=== PATIENT | female | born 1940 | race Caucasian/White ===

== ENCOUNTER → 2017-11-13 | Outpatient (CLI) | payer MEDICARE, OTHER ==
[~2017-11-13] VITALS: Ht 165.1 cm; Wt 61.4 kg
[~2017-11-13] MED LIST: ASPIRIN 81M81 MG/TA2 PO; CRANBERRY500 M3 PO; ELDEPRYL 5MG5 MG/CAP PO; HYZAAR 25 MG-101 TAB PO; NEURONTIN100 MG/CAP PO; OSCAL W/VIT D250 MG PO; PRIL40 PO; PROBIOTIC FORMU1 CAP PO; SYNTHROID0.175 MG PO; TYLENOL 500MG500 MG PO; VITAMIN B COMPL1 TA1 PO; VITAMINE200; [UNRECOGNIZED DRUG - OTHER]
[2017-11-13 15:02] VITALS: BP 104/64; PULSE 96
[2017-11-13 16:09] VITALS: BP 96/58; PULSE 95
[2017-11-13 16:31] LABS: PLEURAL FLUID RBC 39000 /mm3 (0-0); PLEURAL FLUID WBC 4885 /mm3
[2017-11-13 16:33] LABS: GLUCOSE,PLEURAL FLUID 73 mg/dL
[2017-11-13 16:36] LABS: PLEURAL FLUID APPEARANCE CLOUDY; PLEURAL FLUID COLOR RED
== END ==
LOC: COL.RAD 14:22
PROVIDERS: Family Medicine
DX: J90 Pleural effusion, not elsewhere classified (principal)
CPT/HCPCS: 19804

== ENCOUNTER → 2017-11-19 | Outpatient (CLI) | payer MEDICARE, OTHER ==
[~2017-11-19] VITALS: Ht 165.1 cm; Wt 62.0 kg
[2017-11-19] VITALS (9 sets, daily range): BP systolic 123–144; BP diastolic 64–101; PULSE 83–101
[~2017-11-19] MED LIST changes: +ACIDOPHILIS; +LASIX 20MG TABL20 MG PO; +SYNTHROID0.2 MG/TAB PO; +TYLENOL 8 HR PO
== END ==
LOC: COL.RAD 06:30
DX: R19.00 Intra-abdominal and pelvic swelling, mass and lump, unspecified site (principal)

== ENCOUNTER → 2017-11-25 | Outpatient (CLI) | payer MEDICARE, OTHER ==
[~2017-11-25] VITALS: Ht 165.1 cm; Wt 61.4 kg
[2017-11-25 14:22] VITALS: BP 117/68; PULSE 108
[2017-11-25 15:25] VITALS: BP 112/60; PULSE 100
== END ==
LOC: COL.RAD 13:26
DX: J90 Pleural effusion, not elsewhere classified (principal)

== ENCOUNTER → 2017-12-02 | Outpatient (CLI) | payer MEDICARE, OTHER ==
[2017-12-02] VITALS (8 sets, daily range): BP systolic 98–147; BP diastolic 63–79; PULSE 87–106
[~2017-12-02] VITALS: Ht 165.1 cm; Wt 62.5 kg
== END ==
LOC: COL.RAD 11:46
DX: J90 Pleural effusion, not elsewhere classified (principal); R19.00 Intra-abdominal and pelvic swelling, mass and lump, unspecified site; Z98.890 Other specified postprocedural states

== ENCOUNTER 2018-01-08 11:53 | Observation (INO) | payer MEDICARE, OTHER ==
[~2018-01-08] VITALS: Ht 165.1 cm; Wt 58.5 kg
[~2018-01-08 11:53] MED LIST changes: -ACIDOPHILIS; +ACIDOPHILIS PO; +FERROUS SULFATE PO; +NATURAL E400 IU PO; +PROLIA60 MG/ML SQ; +SYNTHROID0.1 MG/TAB PO; +THERATEARS 0.60.6 ML OP
[2018-01-08 12:34] LABS: MEAN CELL VOLUME 93 fl (80.0-100.0); MEAN CORPUSCULAR HGB CONC 31 g/dl (33.0-37.0); MEAN PLATELET VOLUME 8.6 fl (7.4-10.4); PLATELET COUNT 392 K/mm3 (130-400); RED BLOOD COUNT 3.47 M/mm3 (4.10-5.30); REDCELL DISTRIBUTION WIDTH-CV 17.7 % (11.5-14.5)
[2018-01-08 12:38] LABS: HEMATOCRIT 32.2 % (37.0-47.0); HEMOGLOBIN 9.9 g/dl (12.5-16.0); MEAN CORPUSCULAR HEMOGLOBIN 29 pg (27.0-31.0)
[2018-01-08 12:50] LABS: ALANINE AMINOTRANSFERASE 30 U/L (9-52); ALBUMIN 2.8 gm/dL (3.5-5.0); ALKALINE PHOSPHATASE 78 U/L (50-136); ANION GAP 6 mmol/L (7-16); AST,SGOT 21 U/L (15-37); BILIRUBIN,TOTAL 0.2 mg/dL (0.0-1.0); BLOOD UREA NITROGEN 17 mg/dL (7-17); C-REACTIVE PROTEIN 5.8 mg/dL (0.0-0.9); CALCIUM 8.2 mg/dL (8.4-10.2); CARBON DIOXIDE 28 mmol/L (22-30); CHLORIDE 99 mmol/L (98-107); CREATININE, serum 0.51 mg/dL (0.52-1.25); GLUCOSE 93 mg/dL (74-106); POTASSIUM 4.3 mmol/L (3.4-5.0); SODIUM 133 mmol/L (137-145); TOTAL PROTEIN 6.2 gm/dL (6.4-8.2)
[2018-01-08 13:00] LABS: TROPONIN-I < 0.012 ng/mL (0.000-0.034)
[2018-01-08 13:03] LABS: BAND 15 % (0-10); LYMPHOCYTE 8 % (20.0-51.0); NEUTROPHILS 75 % (42.0-75.2); PLATELET ESTIMATE NORMAL (NORMAL)
[2018-01-08 13:04] LABS: ANISOCYTOSIS 1+; STOMATOCYTE 1+
[2018-01-08 13:05] LABS: HYPOCHROMIA 3+
[2018-01-08] MEDS ORDERED: NORCO 325 MG-51 TAB PO (13:22)
[2018-01-08] MEDS ORDERED: BACTRIM DS 8001 TAB PO (13:23)
[2018-01-08] MEDS ORDERED: ZOVIRAX400 MG PO (13:24)
[2018-01-08] MEDS ORDERED: COMPAZINE 110 MG/TAB PO (13:24)
[2018-01-08] MEDS ORDERED: SYNTHROID0.125 MG/T PO (13:25)
[2018-01-08] MEDS ORDERED: LASIX 20MG TABL20 MG PO (13:25)
[2018-01-08] MEDS ORDERED: NATURAL E400 IU PO (13:26)
[2018-01-08] MEDS ORDERED: LOMOTIL 0.025 M1 TAB PO (13:33)
[2018-01-08] MEDS ORDERED: ELDEPRYL 5MG5 MG/CAP PO (13:35)
[2018-01-08 14:00] VITALS: BP 106/69; PULSE 86; TEMP 98
[2018-01-08] MEDS ORDERED: VITAMIN D 400400 IU PO (14:03)
[2018-01-08] MEDS ORDERED: AZO-STANDARD95 MG PO (14:05)
[2018-01-08 14:45] VITALS: BP 104/67; PULSE 87; TEMP 98
[2018-01-08 16:00] VITALS: BP 103/75; PULSE 86; PULSE 90; TEMP 98
[2018-01-08 19:42] VITALS: BP 96/66; PULSE 80; TEMP 98
[2018-01-09] VITALS (7 sets, daily range): BP systolic 101–135; BP diastolic 58–98; PULSE 71–80; TEMP 97.5–98.2
[2018-01-09 05:59] LABS: BASO % 0.6 % (0.0-2.0); EOS # 0.5 (0.0-0.7); EOS % 7.2 % (0-4.0); GRAN # 5.4 (1.4-6.5); LYMPH # 0.5 (1.2-3.4); LYMPH % 7.5 % (20.0-51.0); MEAN CELL VOLUME 95 fl (80.0-100.0); MEAN CORPUSCULAR HGB CONC 30 g/dl (33.0-37.0); MEAN PLATELET VOLUME 8.5 fl (7.4-10.4); MONO # 0.4 (0.1-0.6); MONO % 6.1 % (1.7-9.3); PLATELET COUNT 346 K/mm3 (130-400); REDCELL DISTRIBUTION WIDTH-CV 17.4 % (11.5-14.5)
[2018-01-09 06:00] LABS: HEMATOCRIT 29.3 % (37.0-47.0); HEMOGLOBIN 8.8 g/dl (12.5-16.0); MEAN CORPUSCULAR HEMOGLOBIN 28 pg (27.0-31.0)
[2018-01-09 06:11] LABS: ALANINE AMINOTRANSFERASE 32 U/L (9-52); ALBUMIN 2.3 gm/dL (3.5-5.0); ALKALINE PHOSPHATASE 61 U/L (50-136); ANION GAP 2 mmol/L (7-16); AST,SGOT 25 U/L (15-37); BILIRUBIN,TOTAL < 0.1 mg/dL (0.0-1.0); BLOOD UREA NITROGEN 16 mg/dL (7-17); CALCIUM 7.5 mg/dL (8.4-10.2); CARBON DIOXIDE 29 mmol/L (22-30); CHLORIDE 102 mmol/L (98-107); CREATININE, serum 0.52 mg/dL (0.52-1.25); GLUCOSE 82 mg/dL (74-106); SODIUM 133 mmol/L (137-145); TOTAL PROTEIN 5.3 gm/dL (6.4-8.2)
[2018-01-09] MEDS ORDERED: NEURONTIN300 MG/CAP PO (12:57)
[2018-01-09] MEDS ORDERED: ACIDOPHILIS PO (16:39)
[2018-01-10 04:19] VITALS: BP 119/64; PULSE 70; TEMP 97.9
[2018-01-10 07:24] VITALS: BP 118/76; PULSE 70; TEMP 97.8
[2018-01-10 11:57] VITALS: BP 108/53; PULSE 69; TEMP 98.7
[2018-01-10 16:03] VITALS: BP 109/60; PULSE 73; TEMP 98.1
[2018-01-10 19:19] VITALS: BP 118/70; PULSE 73; TEMP 98.2
[2018-01-10 23:52] VITALS: BP 113/71; PULSE 72; TEMP 98
[2018-01-11] VITALS (7 sets, daily range): BP systolic 120–140; BP diastolic 61–79; PULSE 73–89; TEMP 97.5–98
[2018-01-11 06:02] LABS: BASO # 0.1 (0.0-0.2); BASO % 0.7 % (0.0-2.0); EOS # 0.5 (0.0-0.7); EOS % 7.2 % (0-4.0); GRAN % 74.2 % (42.2-75.2); LYMPH # 0.8 (1.2-3.4); LYMPH % 11.9 % (20.0-51.0); MEAN CELL VOLUME 94 fl (80.0-100.0); MEAN CORPUSCULAR HGB CONC 30 g/dl (33.0-37.0); MEAN PLATELET VOLUME 8.6 fl (7.4-10.4); MONO # 0.4 (0.1-0.6); MONO % 5.6 % (1.7-9.3); PLATELET COUNT 363 K/mm3 (130-400); RED BLOOD COUNT 3.34 M/mm3 (4.10-5.30); REDCELL DISTRIBUTION WIDTH-CV 17.2 % (11.5-14.5)
[2018-01-11 06:04] LABS: HEMATOCRIT 31.5 % (37.0-47.0); HEMOGLOBIN 9.4 g/dl (12.5-16.0); MEAN CORPUSCULAR HEMOGLOBIN 28 pg (27.0-31.0)
[2018-01-11 06:28] LABS: CALCIUM 7.4 mg/dL (8.4-10.2); CREATININE, serum 0.44 mg/dL (0.52-1.25); POTASSIUM 3.8 mmol/L (3.4-5.0)
[2018-01-11] MEDS ORDERED: LOPRESSOR 225 MG/TAB PO (14:29)
== END 2018-01-11 15:04 | disposition home health service (06) ==
LOC: COL.ER 11:53 → ICU 13:44 → MEDICAL 01-09 15:25
PROVIDERS: Emergency Medicine; Internal Medicine
DX: I47.1 Supraventricular tachycardia (principal); R07.89 Other chest pain; I42.9 Cardiomyopathy, unspecified; D64.9 Anemia, unspecified; J90 Pleural effusion, not elsewhere classified; G62.9 Polyneuropathy, unspecified; E03.9 Hypothyroidism, unspecified; E44.0 Moderate protein-calorie malnutrition; I08.1 Rheumatic disorders of both mitral and tricuspid valves; Z90.89 Acquired absence of other organs; Z79.82 Long term (current) use of aspirin; Z90.710 Acquired absence of both cervix and uterus; Z88.1 Allergy status to other antibiotic agents; Z85.850 Personal history of malignant neoplasm of thyroid; Z92.3 Personal history of irradiation; Z86.718 Personal history of other venous thrombosis and embolism; Z80.1 Family history of malignant neoplasm of trachea, bronchus and lung; Z80.0 Family history of malignant neoplasm of digestive organs
CPT/HCPCS: 99232-AI; A9502; G0378; J1650; J2785; J3475; J7030